=== PATIENT | female | born 1975 | race Caucasian/White ===

== ENCOUNTER → 2016-10-30 | Outpatient (CLI) | payer MEDICAID ==
[2016-10-30 07:45] LABS: CH 31.4; CHCM 33.5; HCT 41.3 % (34.0-46.0); HDW 2.23; HGB 13.5 gm/dL (11.4-16.0); MCH 30.8 pg (25.0-35.0); MCHC 32.8 g/dL (31.0-37.0); Mean Platelet Volume 7.4; RBC 4.39 m/uL (3.80-5.40); RDW 12.4 % (11.5-15.5); WBC 7.1 k/uL (3.8-10.6)
--- NOTE | 2016-10-30 08:41 | XR ---
Right shoulder HISTORY: Pain 3 views of the right shoulder No comparisons Bone mineralization, joint spaces and alignment maintained. Marginal spurring at the acromioclavicula r joint. Right lung apex as visualized is normal. IMPRESSION: Acromioclavicular joint arthropathy. Shoulder MRI may be of benefit.
[2016-10-30 09:42] LABS: Erythrocyte Sedimentation Rate 8 mm/hr (0-20)
[2016-10-30 10:18] LABS: C Reactive Protein <5.0 mg/L (<10.0)
[2016-10-30 10:19] LABS: Rheumatoid Factor, Qnt <9 IU/mL (<12)
== END | disposition home or self-care (01) ==
LOC: RADXRMAIN 06:41
PROVIDERS: ATTEND Nurse Practitioner Family
DX: M12.811 Other specific arthropathies, not elsewhere classified, right shoulder (principal); M25.50 Pain in unspecified joint; R53.83 Other fatigue
CPT/HCPCS: 85027; 85652; 86038; 86140; 86431

== ENCOUNTER → 2016-11-08 | Outpatient (CLI) | payer MEDICAID ==
--- NOTE | 2016-11-09 09:19 | MR ---
EXAMINATION TYPE: MR shoulder RT wo con DATE OF EXAM: 11/08/2016 8:26 AM COMPARISON: NONE HISTORY: decreased range of motion and pain in rt shoulder TECHNIQUE: Multiplanar, multisequence imaging of the right shoulder is performed without contrast. FINDINGS: Rotator Cuff: Some minimal fluid is adjacent to the distal supraspinatus tendon within the subdeltoid bursa. No fluid transversing the rotator cuff is evident. Findings could be related to some mild ten dinosis of the supraspinatus tendon. Acromioclavicular Joint: Intact Glenohumeral Joint: Normal Labrum: The labrum appears grossly intact given limitation of non-arthrogram study. Biceps Tendon: The long head of biceps is in normal location within bicipital groove. Bone marrow signal: No focal abnormal marrow signal is appreciated. Other: No additional significant abnormality is appreciated. IMPRESSION: There may be some mild tendinosis of the supraspinatus tendon. Rotator cuff otherwise appears intact.
== END | disposition home or self-care (01) ==
LOC: RADMRIMAIN 07:40
PROVIDERS: ATTEND Family Medicine
DX: M25.511 Pain in right shoulder (principal)

== ENCOUNTER → 2017-03-26 | Outpatient (CLI) | payer MEDICAID ==
[2017-03-26 09:21] LABS: Anion Gap 11 mmol/L; Blood Urea Nitrogen 19 mg/dL (7-17); Calcium 9.6 mg/dL (8.4-10.2); Carbon Dioxide 27 mmol/L (22-30); Chloride 103 mmol/L (98-107); Cholesterol 194 mg/dL (<200); Glucose 81 mg/dL (74-99); HDL Cholesterol 56 mg/dL (40-60); Non-African American GFR(MDRD) >60 (>60 ml/min/1.73 sqM); Potassium 4.3 mmol/L (3.5-5.1); Sodium 141 mmol/L (137-145); Triglycerides 70 mg/dL (<150)
== END | disposition home or self-care (01) ==
LOC: LABWHC1 08:31
PROVIDERS: ATTEND Nurse Practitioner Family
DX: E03.9 Hypothyroidism, unspecified (principal); Z13.1 Encounter for screening for diabetes mellitus; Z13.220 Encounter for screening for lipoid disorders
CPT/HCPCS: 36415; 80048; 80061; 84439; 84443

== ENCOUNTER 2019-03-19 19:42 | Emergency (ER) | payer MEDICAID, OTHER ==
[2019-03-19] MEDS ORDERED: ACETAMINOPHEN TAB 325 MG TAB PO STA (20:49)
[2019-03-19] MEDS ORDERED: IPRATROPIUM-ALBUTEROL 3 ML NEB INHALATION STA (20:49)
--- NOTE | 2019-03-19 21:31 | XR ---
EXAMINATION TYPE: XR chest 2V DATE OF EXAM: 03/19/2019 COMPARISON: NONE HISTORY: Cough and upper respiratory infection. TECHNIQUE: Frontal and lateral views of the chest are obtained. FINDINGS: There is no focal air space opacity, pleural effusion, or pneumothorax seen. The cardiac silhouette size is within normal limits. The osseous structures are intact. IMPRESSION: No suspicious acute pulmonary process.
[2019-03-19] MEDS ORDERED: predniSONE 50 MG TAB PO STA (21:57)
--- NOTE | 2019-03-19 22:20 | ED ---
General Adult HPI - General Chief complaint: Upper Respiratory Infection Stated complaint: Cough Time Seen by Provider: 03/19/19 20:19 Source: patient, RN notes reviewed, old records reviewed Mode of arrival: ambulatory Limitations: no limitations - History of Present Illness Initial comments: 43-year-old female patient with no pertinent past medical history presents to ED with complaint of approximately 4 weeks of waxing and waning cough, sinus congestion. Patient recently completed a about a course of cefdinir. Patient's chief complaint is nonproductive cough with one day of sinus congestion and pressure. Patient states that she has minor pain with coughing and shortness of coughing, denies any chest pain or shortness of breath at baseline. Patient denies any other complaints at this time. Systemic: Pt denies fatigue, myalgia, fever/chills, rash. Pt denies weakness, night sweats, weight loss. Neuro: Pt denies headache, visual disturbances, syncope or pre-syncope. HEENT: Pt denies ocular discharge or irritation, otalgia, rhinorrhea, pharyngitis or notable lymphadenopathy. Cardiopulmonary: Pt denies chest pain, SOB, heart palpitations, dyspnea on exertion. Abdominal/GI: Pt denies abdominal pain, n/v/d. : Pt denies dysuria, burning w/ urination, frequency/urgency. Denies new onset urinary or bowel incontinence. MSK: Pt denies myalgia, loss of strength or function in extremities. Neuro: Pt denies new onset weakness, paresthesias. - Related Data Previous Rx's Medication Instructions Recorded Albuterol Inhaler [Ventolin Hfa 1 - 2 puff INHALATION Q4-6H PRN #1 03/19/19 Inhaler] inhaler predniSONE 50 mg PO DAILY #4 tab 03/19/19 Allergies Allergy/AdvReac Type Severity Reaction Status Date / Time codeine AdvReac Abdominal Verified 03/19/19 20:05 Pain Penicillins AdvReac Unknown Verified 03/19/19 20:05 Review of Systems ROS Statement: Those systems with pertinent positive or pertinent negative responses have been documented in the HPI. ROS Other: All systems not noted in ROS Statement are negative. Past Medical History Past Medical History: No Reported History History of Any Multi-Drug Resistant Organisms: None Reported Past Surgical History: Cholecystectomy, Hysterectomy, Tubal Ligation Past Psychological History: No Psychological Hx Reported Smoking Status: Never smoker Past Alcohol Use History: None Reported Past Drug Use History: None Reported General Exam - General Exam Comments Initial Comments: Constitutional: NAD, AOX3, Pt has pleasant affect. HEENT: NC/AT, trachea midline, neck supple, no lymphadenopathy. Posterior pharynx non erythematous, without exudates. External ears appear normal, without discharge. Mucous membranes moist. Eyes PERRLA, EOM intact. There is no scleral icterus. No pallor noted. Cardiopulmonary: RRR, no murmurs, rubs or gallops, no JVD noted. Mild wheezing noted in anterior posterior lobo. Wheezing resolved after breathing treatment. No peripheral edema. Abdominal exam: Abdomen soft and non-distended. Abdomen non-tender to palpation in all 4 quadrants. Bowel sounds active in LLQ. No hepatosplenomegaly. No ecchymosis Neuro: CN II-XII grossly intact. No nuchal rigidity. MSK: No posterior calf tenderness bilaterally, homans sign negative bilaterally. Posterior tibialis and radial pulse +2 bilaterally. Sensation intact in upper and lower extremities. Full active ROM in upper and lower extremities, 5/5 stregnth. Limitations: no limitations Course Vital Signs 03/19/19 03/19/19 03/19/19 20:00 21:00 21:19 Temperature 99.2 F Pulse Rate 92 78 Respiratory 18 18 20 Rate Blood Pressure 137/90 O2 Sat by Pulse 97 Oximetry 03/19/19 03/19/19 03/19/19 21:29 21:40 22:45 Temperature 98.3 F 98.1 F Pulse Rate 88 83 80 Respiratory 14 20 16 Rate Blood Pressure 138/89 133/70 O2 Sat by Pulse 97 98 Oximetry Medical Decision Making - Medical Decision Making 43-year-old female patient with no pertinent past medical history presents to ED with complaint of approximately 4 weeks of waxing and waning cough, sinus congestion. Patient recently completed a about a course of cefdinir. Patient's chief complaint is nonproductive cough with one day of sinus congestion and pressure. Patient denies any other complaints at this time. Patient states that she has minor pain with coughing and shortness of coughing, denies any chest pain or shortness of breath at baseline. Pt VSS stable, afebrile. Physical exam displayed: Mild wheezing noted in anterior posterior lobo. Wheezing resolved after breathing treatment. Chest x-ray displayed no acute process. Patient history of breathing treatment and steroids. Patient states that she does feel much better after breathing treatment. Patient will be discharged with albuterol and prednisone. Patient follow up with primary care provider in 1-2 days. Patient return to ER physician worsens anyway. Case discussed with Dr. Tracey. Disposition Clinical Impression: Bronchitis Disposition: HOME SELF-CARE Condition: Stable Instructions (If sedation given, give patient instructions): Acute Bronchitis (ED) Additional Instructions: Patient to adhere to previously discussed treatment plan and will take medication(s) as directed. Patient to follow up with PCP in 1-2 days. Patient to return to ED if symptoms do not improve. Prescriptions: predniSONE 50 mg PO DAILY #4 tab Albuterol Inhaler [Ventolin Hfa Inhaler] 1 - 2 puff INHALATION Q4-6H PRN #1 inhaler PRN Reason: Cough Is patient prescribed a controlled substance at d/c from ED?: No Referrals: Jose M Villanueva MD [Primary Care Provider] - 1-2 days
[2019-03-19 22:46] VITALS: BP 133/70; PULSE 80; RESP 16; TEMP 98.1
== END 2019-03-19 22:45 | disposition home or self-care (01) ==
LOC: EC 19:42
DX: J40 Bronchitis, not specified as acute or chronic (principal); Z88.0 Allergy status to penicillin; Z88.5 Allergy status to narcotic agent
CPT/HCPCS: 94640; 71046; 99284; J7512

== ENCOUNTER 2019-12-13 11:37 | Emergency (ER) | payer OTHER ==
[2019-12-13] MEDS ORDERED: ONDANSETRON ODT 4 MG TAB PO STA (12:20)
[2019-12-13 12:42] VITALS: RESP 18
--- NOTE | 2019-12-13 12:56 | XR ---
EXAMINATION TYPE: XR chest 2V DATE OF EXAM: 12/13/2019 COMPARISON: 03/19/2019 HISTORY: Difficulty breathing, cough, and vomiting for 2 days TECHNIQUE: Frontal and lateral views of the chest are obtained. FINDINGS: Patchy airspace disease is seen within the left midlung. This is new from the prior. Remai nder the lungs are well aerated. Cardiac silhouette size is within normal limits. No acute osseous pa thology. IMPRESSION: New left midlung airspace disease, pneumonia is of primary diagnostic consideration.
[2019-12-13] MEDS ORDERED: cefTRIAXone 1,000 MG VIAL (IM USE) IM STA (13:11)
--- NOTE | 2019-12-13 13:14 | ED ---
General Adult HPI - General Chief complaint: Abdominal Pain Stated complaint: Bronchitis Time Seen by Provider: 12/13/19 12:14 Source: patient, RN notes reviewed Mode of arrival: ambulatory Limitations: no limitations - History of Present Illness Initial comments: 44-year-old female presents emergency Department chief complaint fever cough congestion bodyaches. Patient states she has not follow-up last 4-5 days. Patient states that she felt was a cold initially but has worsened. Patient episode of vomiting in the waiting room states that she has no abdominal pain. Patient states that she's had recurrent bronchitis. Patient denies any sick contacts. - Related Data Previous Rx's Medication Instructions Recorded Albuterol Inhaler [Ventolin Hfa 1 - 2 puff INHALATION Q4-6H PRN #1 03/19/19 Inhaler] inhaler predniSONE 50 mg PO DAILY #4 tab 03/19/19 Azithromycin [Zithromax Z-pack] 0 mg PO DIRECTED #1 pack 12/13/19 predniSONE 50 mg PO DAILY #5 tab 12/13/19 Allergies Allergy/AdvReac Type Severity Reaction Status Date / Time codeine AdvReac Abdominal Verified 12/13/19 11:50 Pain Penicillins AdvReac Unknown Verified 12/13/19 11:50 Review of Systems ROS Statement: Those systems with pertinent positive or pertinent negative responses have been documented in the HPI. ROS Other: All systems not noted in ROS Statement are negative. Past Medical History Past Medical History: No Reported History History of Any Multi-Drug Resistant Organisms: None Reported Past Surgical History: Cholecystectomy, Hysterectomy, Tubal Ligation Past Psychological History: No Psychological Hx Reported Smoking Status: Never smoker Past Alcohol Use History: None Reported Past Drug Use History: None Reported General Exam Limitations: no limitations General appearance: alert, in no apparent distress Head exam: Present: atraumatic, normocephalic, normal inspection Eye exam: Present: normal appearance, PERRL, EOMI. Absent: scleral icterus, conjunctival injection, periorbital swelling ENT exam: Present: normal exam, normal oropharynx, mucous membranes moist Neck exam: Present: normal inspection, full ROM. Absent: tenderness, meningismus, lymphadenopathy Respiratory exam: Present: wheezes (Mild). Absent: normal lung sounds bilaterally, respiratory distress, rales, rhonchi, stridor Cardiovascular Exam: Present: normal rhythm, tachycardia, normal heart sounds. Absent: systolic murmur, diastolic murmur, rubs, gallop, clicks GI/Abdominal exam: Present: soft, normal bowel sounds. Absent: distended, tenderness, guarding, rebound, rigid Course Vital Signs 12/13/19 12/13/19 11:45 12:34 Temperature 99.2 F Pulse Rate 107 H Respiratory 20 18 Rate Blood Pressure 131/97 O2 Sat by Pulse 96 Oximetry Medical Decision Making - Medical Decision Making X-ray shows evidence of pneumonia. Patient was given Rocephin will be discharged on azithromycin, prednisone. Return parameters discussed. - Lab Data Lab Results 12/13/19 Range/Units 11:50 Influenza Type A RNA Not Detected (Not Detectd) Influenza Type B (PCR) Not Detected (Not Detectd) Disposition Clinical Impression: Pneumonia Disposition: HOME SELF-CARE Condition: Stable Instructions (If sedation given, give patient instructions): Pneumonia (ED) Additional Instructions: Please return to the Emergency Department if symptoms worsen or any other concerns. Prescriptions: predniSONE 50 mg PO DAILY #5 tab Azithromycin [Zithromax Z-pack] 0 mg PO DIRECTED #1 pack Is patient prescribed a controlled substance at d/c from ED?: No Referrals: Nimesh Wells MD [Primary Care Provider] - 1-2 days Time of Disposition: 13:13
[2019-12-13 13:36] VITALS: BP 120/91; PULSE 95; TEMP 98.4
== END 2019-12-13 13:30 | disposition home or self-care (01) ==
LOC: EC 11:37
DX: J18.9 Pneumonia, unspecified organism (principal); Z88.0 Allergy status to penicillin; Z88.5 Allergy status to narcotic agent; Z90.49 Acquired absence of other specified parts of digestive tract
CPT/HCPCS: 87502; 71046; 96372; 99284; J0696

== ENCOUNTER 2020-02-16 12:38 | Emergency (ER) | payer OTHER ==
[2020-02-16 12:44] VITALS: RESP 18; TEMP 98.1
--- NOTE | 2020-02-16 13:02 | ED ---
General Adult HPI - General Chief complaint: Upper Respiratory Infection Stated complaint: fever, chills, sore throat, body aches Time Seen by Provider: 02/16/20 12:45 Source: patient, RN notes reviewed Mode of arrival: ambulatory Limitations: no limitations - History of Present Illness Initial comments: 44-year-old female presents to the emergency department for a chief complaint of "coronavirus symptoms." Patient states that for the past 5 days she has felt ill. She states that this started with a sore throat and mild cough. States that she has felt feverish although her temperature has never been above 99. She states she has had body aches. She has had minimal shortness of breath. Denies any chest pain. Patient has no other complaints at this time including chest pain, abdominal pain, nausea or vomiting, headache, or visual changes. - Related Data Home Medications Medication Instructions Recorded Confirmed Ascorbic Acid [Vitamin C] 1,000 mg PO DAILY 02/16/20 02/16/20 Black Cohosh Root [Black Cohosh] 200 mg PO DAILY 02/16/20 02/16/20 Fluticasone Nasal [place] [Flonase 2 spr EA NOSTRIL DAILY 02/16/20 02/16/20 Nasal [place]] Multivitamins, Thera [Multivitamin 1 tab PO DAILY 02/16/20 02/16/20 (formulary)] Allergies Allergy/AdvReac Type Severity Reaction Status Date / Time codeine AdvReac Abdominal Verified 02/16/20 13:25 Pain Penicillins AdvReac Unknown Verified 02/16/20 13:25 Review of Systems ROS Statement: Those systems with pertinent positive or pertinent negative responses have been documented in the HPI. ROS Other: All systems not noted in ROS Statement are negative. Past Medical History Past Medical History: No Reported History History of Any Multi-Drug Resistant Organisms: None Reported Past Surgical History: Cholecystectomy, Hysterectomy, Tubal Ligation Past Psychological History: No Psychological Hx Reported Smoking Status: Never smoker Past Alcohol Use History: None Reported Past Drug Use History: None Reported General Exam Limitations: no limitations General appearance: alert, in no apparent distress Head exam: Present: atraumatic, normocephalic, normal inspection Eye exam: Present: normal appearance, PERRL, EOMI. Absent: scleral icterus, conjunctival injection, periorbital swelling ENT exam: Present: normal exam, normal oropharynx (Uvula midline, no tonsillar exudates bilaterally), mucous membranes moist, normal external ear exam Neck exam: Present: normal inspection, full ROM. Absent: tenderness, meningismus, lymphadenopathy Respiratory exam: Present: normal lung sounds bilaterally. Absent: respiratory distress, wheezes, rales, rhonchi, stridor Cardiovascular Exam: Present: regular rate, normal rhythm, normal heart sounds. Absent: systolic murmur, diastolic murmur, rubs, gallop, clicks GI/Abdominal exam: Present: soft, normal bowel sounds. Absent: distended, tenderness, guarding, rebound, rigid Neurological exam: Present: alert Course Vital Signs 02/16/20 02/16/20 12:39 13:05 Temperature 98.1 F Pulse Rate 79 Respiratory 18 18 Rate Blood Pressure 130/90 O2 Sat by Pulse 97 Oximetry Medical Decision Making - Medical Decision Making Vitals are stable. HPI and physical exam as documented. Patient is well- appearing. Strep is negative. Madrigal virus is negative. X-ray shows no acute process currently. 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 Patient will follow up with primary care. She will return here for any worsening symptoms. I did discuss strict return parameters with patient. - Lab Data Lab Results 02/16/20 Range/Units 12:58 Coronavirus (PCR) Not Detected (Not Detectd) Group A Strep Rapid Negative (Negative) Disposition Clinical Impression: Cough, Pharyngitis Disposition: HOME SELF-CARE Condition: Good Instructions (If sedation given, give patient instructions): Upper Respiratory Infection (ED) Additional Instructions: Please drink plenty of fluids. Take Tylenol for pain and fever. Follow 14 day quarantine guidelines. Return to the emergency department for any worsening symptoms such as increased shortness of breath. Otherwise follow-up with primary care in 1-2 days. Is patient prescribed a controlled substance at d/c from ED?: No Referrals: Nimesh Wells MD [Primary Care Provider] - 1-2 days Time of Disposition: 14:39
--- NOTE | 2020-02-16 13:23 | XR ---
EXAMINATION TYPE: XR chest 1V portable DATE OF EXAM: 02/16/2020 COMPARISON: Chest x-ray December 13, 2019. HISTORY: Difficult to the breathing and cough. TECHNIQUE: Single AP portable frontal upright view of the chest is obtained. FINDINGS: There is no focal air space opacity, pleural effusion, or pneumothorax seen on current jose g dy. The cardiac silhouette size remains within normal limits. The osseous structures are intact. IMPRESSION: No acute process currently.
[2020-02-16 14:53] VITALS: BP 128/78; PULSE 75
== END 2020-02-16 14:53 | disposition home or self-care (01) ==
LOC: EC 12:38
DX: Z03.818 Encounter for observation for suspected exposure to other biological agents ruled out (principal); J02.9 Acute pharyngitis, unspecified; Z88.5 Allergy status to narcotic agent; Z88.0 Allergy status to penicillin
CPT/HCPCS: 71045; 87081; 87430; 87635; 99285

== ENCOUNTER 2020-12-21 08:16 | Day surgery (SDC) | payer BC, OTHER ==
[2020-12-18 14:19] VITALS: BMI 32.9
[~2020-12-21 08:16] MED LIST: LACTATED RINGERS 1,000 ML IV SCH
[2020-12-21] MEDS ORDERED: LIDOCAINE 1% (10MG/ML) FOR IV START INTRADERMA ONE (08:50)
[2020-12-21 09:00] VITALS: TEMP 97.8
[2020-12-21] MEDS ORDERED: LIDOCAINE 1% INJ 10MG/ML (20 ML MDV) ONE (09:41)
[2020-12-21] MEDS ORDERED: PROPOFOL 10 MG/ML 20 ML VIAL IV ONE (09:41)
--- NOTE | 2020-12-21 10:16 | P.PCN ---
Date of Procedure: 12/21/20 Procedure(s) Performed: Brief history: Patient is a pleasant 45-year-old white female scheduled for an elective upper endoscopy as well as colonoscopy as a part of evaluation of GERD/intermittent dysphagia to solids and change in bowel habits Procedure performed: Esophagogastroduodenoscopy with biopsy Colonoscopy snare polypectomy Preoperative diagnosis: GERD/intermittent dysphagia Change in bowel habits Anesthesia: MAC Procedure: After informed consent was obtained from the patient was brought into the endoscopy unit and IV sedation was administered by anesthesia under continuous monitoring. Initially upper endoscopy was done. The Olympus GF 160 video endoscope was inserted inserted into the mouth and esophagus intubated without any difficulty and was gradually advanced into the stomach and duodenum and carefully examined. The bulb and second part of the duodenum appeared normal. The scope was then withdrawn into the stomach adequately insufflated with air and upon careful examination the antrum and body, cardia and fundus appeared normal. The scope was then withdrawn into the esophagus. The GE junction was located at 40 cm to the incisors. It appeared regular with no erythema erosions or ulcerations. Rest of the esophagus appeared normal. Patient tolerated the procedure well. At this time the patient continued to remain sedation. Initial digital rectal examination was normal. Olympus CF 160 video colonoscope was then inserted into the rectum and gradually advanced to the cecum without any difficulty. Careful examination was performed as the scope was gradually being withdrawn. The prep was excellent.5 mm cecal polyp status post polypectomy, 5 mm hepatic flexure polyp status post polypectomy , 1 cm transverse colon polyp status post polypectomy, 1 cm descending colon polyp status post polypectomy and 3 mm rectal polyp status post polypectomy The rest of the descending colon, sigmoid colon and rectum appeared normal. Retroflexion was performed in the rectum and no lesions were noted. Patient tolerated the procedure well. Impression: 1. Upper endoscopy revealed mild antral gastritis but no evidence of esophagitis or peptic ulcer disease 2. Colonoscopy revealed: 5 mm cecal polyp status post polypectomy 5 mm hepatic flexure polyp status post polypectomy 1 cm transverse colon polyp status post polypectomy 1 cm descending colon polyp status post polypectomy 3 mm rectal polyp status post polypectomy Recommendations: Findings of this examination were discussed with the patient as well as her family. She was advised to follow with the biopsy results. If the biopsy reveals adenoma she can have a repeat colonoscopy in 3 years
[2020-12-21 10:17] VITALS: RESP 16
[2020-12-21 10:38] VITALS: BP 144/88; PULSE 59
== END 2020-12-21 10:59 | disposition home or self-care (01) ==
LOC: ORWHC2ENDO 08:16
PROVIDERS: ATTEND Internal Medicine Gastroenterology
DX: K29.50 Unspecified chronic gastritis without bleeding (principal); K21.9 Gastro-esophageal reflux disease without esophagitis; R13.10 Dysphagia, unspecified; R19.4 Change in bowel habit; D12.0 Benign neoplasm of cecum; D12.4 Benign neoplasm of descending colon; D12.3 Benign neoplasm of transverse colon; K63.5 Polyp of colon; K62.1 Rectal polyp; K58.9 Irritable bowel syndrome, unspecified; Z88.5 Allergy status to narcotic agent; Z88.0 Allergy status to penicillin; Z79.899 Other long term (current) drug therapy
CPT/HCPCS: 88305; 88342; 45385; 43239; J2001; J2704

== ENCOUNTER → 2025-01-17 | Outpatient (CLI) | payer MEDICAID ==
--- NOTE | 2025-01-17 10:15 | CA ---
Transthoracic Echo Report Name: Crystal Morales Age: 49 Gender: F : 1975 Exam Date: 01/17/2025 08:32 Exam Location: [facility] Ht (in): 62 Wt (lb): 192 Ordering Physician: Sommer Juan MD Attending/Referring Phys: [id number], Yessica Statistical Programmer Rosemarie Lora RDCS Procedure CPT: Indications: Z12.39 Screening R01.1 CARDIAC J45.20 ASTHMA Cardiac Hx: Technical Quality: Fair Contrast 1: Total Dose (mL): Contrast 2: Total Dose (mL): MEASUREMENTS (Male / Female) Normal Values 2D ECHO LV Diastolic Diameter PLAX 5.0 cm 4.2 - 5.9 / 3.9 - 5.3 cm LV Systolic Diameter PLAX 3.4 cm IVS Diastolic Thickness 1.0 cm 0.6 - 1.0 / 0.6 - 0.9 cm LVPW Diastolic Thickness 0.8 cm 0.6 - 1.0 / 0.6 - 0.9 cm LV Relative Wall Thickness 0.4 LVOT Diameter 2.0 cm LV Diastolic Volume MOD BP 87.5 cm??? 67 - 155 / 56 - 104 cm??? LV Systolic Volume MOD BP 37.9 cm??? 22 - 58 / 19 - 49 cm??? LV Ejection Fraction MOD BP 56.7 % >= 55 % LV Cardiac Index MOD BP 1842.6 cm???/min???m??? LV Diastolic Volume MOD 4C 86.4 cm??? LV Systolic Volume MOD 4C 37.7 cm??? LV Ejection Fraction MOD 4C 56.3 % LV Cardiac Index MOD 4C 1807.7 cm???/min???m??? LV Diastolic Length 4C 7.5 cm LV Systolic Length 4C 6.2 cm LV Diastolic Volume MOD 2C 84.4 cm??? LV Systolic Volume MOD 2C 33.6 cm??? LV Ejection Fraction MOD 2C 60.2 % LV Cardiac Index MOD 2C 1886.4 cm???/min???m??? LV Diastolic Length 2C 7.9 cm LV Systolic Length 2C 7.1 cm LA Volume 31.4 cm??? 18 - 58 / 22 - 52 cm??? LA Volume Index 15.8 cm???/m??? 16 - 28 cm???/m??? Ascending Aorta Diameter 3.5 cm DOPPLER AV Peak Velocity 165.2 cm/s AV Peak Gradient 10.9 mmHg AV Mean Velocity 118.0 cm/s AV Mean Gradient 6.0 mmHg AV Velocity Time Integral 36.8 cm LVOT Peak Velocity 114.3 cm/s LVOT Peak Gradient 5.2 mmHg LVOT Velocity Time Integral 25.6 cm LVOT Stroke Volume 84.1 cm??? LVOT Stroke Volume Index 44.8 ml/m??? LVOT Cardiac Index 3123.6 cm???/min???m??? AV Area Cont Eq vti 2.3 cm??? AV Area Cont Eq pk 2.3 cm??? MV Area PHT 5.4 cm??? Mitral E Point Velocity 66.1 cm/s Mitral A Point Velocity 53.7 cm/s Mitral E to A Ratio 1.2 MV Deceleration Time 141.7 ms PV Peak Velocity 92.2 cm/s PV Peak Gradient 3.4 mmHg FINDINGS Left Ventricle Left ventricular ejection fraction is estimated at 55-60 %. Mildly increased septal wall thickness. Left ventricular cavity size normal. No obvious regional wall motion abnormalities. Right Ventricle Normal right ventricular size and function. Unable to estimate the right ventricular systolic pressure. Right Atrium Normal right atrial size. Left Atrium Normal left atrial size. Mitral Valve Structurally normal mitral valve. No mitral stenosis, regurgitation or prolapse. Aortic Valve Trileaflet aortic valve. No aortic stenosis. Trace to mild aortic regurgitation. Tricuspid Valve Structurally normal tricuspid valve. No tricuspid stenosis. Trace tricuspid regurgitation. Pulmonic Valve Pulmonic valve not well visualized. No pulmonic stenosis. No pulmonic regurgitation. Pericardium No pericardial effusion. Aorta Normal size aortic root and proximal ascending aorta. CONCLUSIONS LVH with preserved systolic function ejection fraction greater than 55% No significant valvular abnormalities Prominent posterior pericardial stripe Previewed by: Dr. Wayne Leach MD (Electronically Signed) Final Date: 17 January 2025 10:14
--- NOTE | 2025-01-18 15:04 | MM ---
Reason for Exam: Screening (asymptomatic). Last mammogram was performed 8 year(s) and 7 month(s) ago. Patient History: Menarche at age 11. First Full-Term at age 19. Hysterectomy at age 45. Last menstrual period: Risk Values: Nirali 5 year model risk: 0.9%. NCI Lifetime model risk: 7.9%. Prior Study Comparison: 04/05/2015 Bilateral Screening Mammogram, [facility]. 06/19/2016 Bilateral Screening Mammogram, [facility]. Tissue Density: There are scattered areas of fibroglandular density. Findings: Analyzed By CAD. There is no suspicious group of microcalcifications or new suspicious mass in either breast. Overall Assessment: Negative, BI-RAD 1 Management: Screening Mammogram of both breasts in 1 year. . Patient should continue monthly self-breast exams. A clinical breast exam by your physician is recommended on an annual basis. This exam should not preclude additional follow-up of suspicious palpable abnormalities. Note on Nirali scores and lifetime risk: 1. A Nirali score greater than 3% is considered moderate risk. If this is the case, consider specialist referral to assess eligibility for a risk reducing agent. 2. If overall lifetime risk for the development of breast cancer is 20% or higher, the patient may qualify for future screening with alternating mammogram and breast MRI. [facility], , 01/18/2025 3:01 PM. Electronically signed and approved by: Denys Costa M.D. [facility]
== END | disposition home or self-care (01) ==
LOC: RADECHMAIN 07:55
PROVIDERS: ATTEND Family Medicine
DX: Z12.31 Encounter for screening mammogram for malignant neoplasm of breast (principal); R01.1 Cardiac murmur, unspecified; J45.20 Mild intermittent asthma, uncomplicated; R92.323 Mammographic fibroglandular density, bilateral breasts; I07.1 Rheumatic tricuspid insufficiency
CPT/HCPCS: 77067; 93306; 94060; 94726; 94729

== ENCOUNTER → 2025-01-17 | Outpatient (CLI) | payer MEDICAID ==
--- NOTE | 2025-01-17 11:23 | US ---
EXAMINATION TYPE: US thyroid st tissue head/neck DATE OF EXAM: 01/17/2025 COMPARISON: NONE CLINICAL INDICATION: Female, 49 years old with history of R79.89 ABNORMAL TSH LEVEL; Abnormal thyroid stimulating hormone level TECHNIQUE: Grayscale and color Doppler imaging of the thyroid gland. FINDINGS: GLAND SIZE: Right Lobe: 4.4 x 1.5 x 1.3 cm Overall Parenchyma: Slightly heterogeneous Left Lobe: 4.9 x 1.5 x 1.6 cm Overall Parenchyma: Slightly heterogeneous Isthmus Thickness: 0.33 cm NODULES RIGHT: # of nodules measured on right: 1 1. 0.3 X 0.4 x 0.4 cm, mid mid, solid or almost completely solid, hyperechoic nodule, which is as w mechelle as it is tall, with smooth margins, without echogenic foci. TR3 Prior size: no prior LEFT: # of nodules measured on left: 3 1. 0.6 X 0.7 x 0.5 cm, mid mid, cystic or almost completely cystic, anechoic nodule, which is wider than tall, with smooth margins, without echogenic foci. TR1 Prior size: no prior 2. 1.1 X 0.9 x 0.5 cm, lower lateral, solid or almost completely solid, hypoechoic nodule, which i s wider than tall, with ill-defined margins, without echogenic foci. TR4 Prior size: no prior 2017 ACR TI-RADS LEVEL: 3. 1.0 X 0.8 x 0.7 cm, lower lateral, solid or almost completely solid, hypoechoic nodule, which is wider than tall, with smooth margins, without echogenic foci. TR4 Prior size: no prior 2017 ACR TI-RADS LEVEL: ISTHMUS: # of nodules measured in the isthmus: 0 Bilateral neck scanned, no evidence of lymphadenopathy. Heterogeneous normal-sized thyroid with small bilateral nodules. IMPRESSION: As above. Follow-up ultrasound in one year time is advised. Highest TI-RADS level nodule reported: 2017 ACR TI-RADS LEVEL: TI-RADS 4 - Moderately Suspicious: Follow if > 1 cm, FNA if > 1.5 cm TI-RADS assessment score and recommendation for follow-up based on appropriate scoring and treatment protocols. TR3: If nodule size is ? 2.5 cm, FNA is recommended. If nodule size is ? 1.5 cm, follow-up imaging at 1, 3, and 5 years is recommended. TR4: If nodule size is ? 1.5 cm, FNA is recommended. If nodule size is ? 1.0 cm, follow-up imaging at 1, 2, 3, and 5 years is recommended. TR5: If nodule size is ? 1.0 cm, FNA is recommended. If nodule size is ? 0.5 cm, annual follow-up for up to 5 years is recommended. [email or web address] [facility], , 01/17/2025 11:20 AM
== END | disposition home or self-care (01) ==
LOC: RADUSWWP 10:36
DX: E04.2 Nontoxic multinodular goiter (principal); R79.89 Other specified abnormal findings of blood chemistry
CPT/HCPCS: 76536